=== PATIENT | male | born 1970 | race Caucasian/White ===

== ENCOUNTER 2018-01-02 01:40 | Inpatient (IN) | payer MEDICAID, OTHER, SELFPAY ==
[2018-01-02] MEDS ORDERED: MOM 30ML SUSPENSION UDC PO (03:30)
[2018-01-02] MEDS ORDERED: MAALOX 30 ML SUSP *UDC PO (03:30)
[2018-01-02] MEDS: THIAMINE 100 MG TAB PO ×2 (09:39→20:24)
[2018-01-02] MEDS: MULTIVITAMINS/MINERALS THERAP 1 TAB PO (09:39)
[2018-01-02] MEDS: FOLIC ACID 1 MG TAB PO (09:39)
[2018-01-02] MEDS: LORazepam 2 MG TAB PO (12:24)
[2018-01-02] MEDS: CitaloPRAM (CeleXA) 20 MG TAB PO (15:22)
[2018-01-02] MEDS: traZODone 50 MG TAB PO (20:24)
[2018-01-03] MEDS: THIAMINE 100 MG TAB PO ×2 (08:52→21:24)
[2018-01-03] MEDS: MULTIVITAMINS/MINERALS THERAP 1 TAB PO (08:53)
[2018-01-03] MEDS: CitaloPRAM (CeleXA) 20 MG TAB PO (08:53)
[2018-01-03] MEDS: LORazepam 2 MG TAB PO ×2 (08:53→18:25)
[2018-01-03] MEDS: FOLIC ACID 1 MG TAB PO (08:53)
[2018-01-03] MEDS: traZODone 50 MG TAB PO (21:24)
[2018-01-04] MEDS: MULTIVITAMINS/MINERALS THERAP 1 TAB PO (08:45)
[2018-01-04] MEDS: FOLIC ACID 1 MG TAB PO (08:45)
[2018-01-04] MEDS: CitaloPRAM (CeleXA) 20 MG TAB PO (08:46)
[2018-01-04] MEDS: THIAMINE 100 MG TAB PO ×2 (08:46→21:29)
[2018-01-04] MEDS: NICOTINE 21MG/24HR 1 EA TRANSDERMAL TD (15:18)
[2018-01-04] MEDS: traZODone 50 MG TAB PO (21:29)
[2018-01-04] MEDS: ACETAMINOPHEN TAB 650MG DOSE (2X325MG) PO (21:30)
[2018-01-05] MEDS: NICOTINE 21MG/24HR 1 EA TRANSDERMAL TD (08:46)
[2018-01-05] MEDS: FOLIC ACID 1 MG TAB PO (08:46)
[2018-01-05] MEDS: MULTIVITAMINS/MINERALS THERAP 1 TAB PO (08:46)
[2018-01-05] MEDS: CitaloPRAM (CeleXA) 20 MG TAB PO (08:46)
[2018-01-05] MEDS: IBUPROFEN 400 MG TAB PO (21:23)
[2018-01-05] MEDS: traZODone 100 MG TAB PO (21:23)
[2018-01-06] MEDS: MULTIVITAMINS/MINERALS THERAP 1 TAB PO (08:17)
[2018-01-06] MEDS: CitaloPRAM (CeleXA) 20 MG TAB PO (08:17)
[2018-01-06] MEDS: FOLIC ACID 1 MG TAB PO (08:17)
[2018-01-06] MEDS: NICOTINE 21MG/24HR 1 EA TRANSDERMAL TD (08:19)
[2018-01-06] MEDS: IBUPROFEN 400 MG TAB PO ×2 (10:31→21:15)
[2018-01-06] MEDS: hydrOXYzine 50 MG TAB PO ×2 (10:31→21:14)
[2018-01-06] MEDS: traZODone 100 MG TAB PO (21:15)
[2018-01-07] MEDS: FOLIC ACID 1 MG TAB PO (08:25)
[2018-01-07] MEDS: NICOTINE 21MG/24HR 1 EA TRANSDERMAL TD (08:25)
[2018-01-07] MEDS: MULTIVITAMINS/MINERALS THERAP 1 TAB PO (08:25)
[2018-01-07] MEDS: CitaloPRAM (CeleXA) 20 MG TAB PO (08:25)
[2018-01-07] MEDS: hydrOXYzine 50 MG TAB PO ×2 (08:26→16:25)
[2018-01-07] MEDS: IBUPROFEN 400 MG TAB PO (16:25)
[2018-01-07] MEDS: DOXEPIN 25 MG CAP PO (21:54)
[2018-01-08] MEDS: CitaloPRAM (CeleXA) 20 MG TAB PO (08:11)
[2018-01-08] MEDS: NICOTINE 21MG/24HR 1 EA TRANSDERMAL TD (08:11)
[2018-01-08] MEDS: hydrOXYzine 50 MG TAB PO (08:11)
[2018-01-08] MEDS: DOXEPIN 25 MG CAP PO (21:01)
[2018-01-09] MEDS: NICOTINE 21MG/24HR 1 EA TRANSDERMAL TD (08:43)
[2018-01-09] MEDS: hydrOXYzine 50 MG TAB PO ×2 (08:43→19:40)
[2018-01-09] MEDS: CitaloPRAM (CeleXA) 20 MG TAB PO (08:43)
[2018-01-09] MEDS: DOXEPIN 25 MG CAP PO (21:28)
[2018-01-10] MEDS: CitaloPRAM (CeleXA) 20 MG TAB PO (08:01)
[2018-01-10] MEDS: hydrOXYzine 50 MG TAB PO ×2 (08:01→16:42)
[2018-01-10] MEDS: IBUPROFEN 400 MG TAB PO ×2 (08:01→16:42)
[2018-01-10] MEDS: NICOTINE 21MG/24HR 1 EA TRANSDERMAL TD (08:02)
[2018-01-10] MEDS: DOXEPIN 25 MG CAP PO (21:17)
[2018-01-11] MEDS: NICOTINE 21MG/24HR 1 EA TRANSDERMAL TD (08:11)
[2018-01-11] MEDS: hydrOXYzine 50 MG TAB PO (08:12)
[2018-01-11] MEDS: CitaloPRAM (CeleXA) 20 MG TAB PO (08:12)
== END 2018-01-11 12:10 | DRG 775 ==
LOC: M ED 01:40 → M ED INP 03:25 → M PSY 04:54
DX: F10.24 Alcohol dependence with alcohol-induced mood disorder (principal); F17.210 Nicotine dependence, cigarettes, uncomplicated; F43.21 Adjustment disorder with depressed mood; M51.36 Other intervertebral disc degeneration, lumbar region; Z59.0 Homelessness; Z88.1 Allergy status to other antibiotic agents

== ENCOUNTER → 2021-11-05 | Outpatient (REF) ==
[~2021-11-05] MED LIST: CELE20TA PO; DOXE100CA PO; DOXE25CA PO
--- NOTE | 2021-11-05 10:40 | REP ---
INDICATION: PAIN COMPARISON: None. TECHNIQUE: AP, lateral, coned-down views of the lumbar spine. FINDINGS: Alignment and lordosis maintained. No acute fracture/compression injury or subluxation. Moderate/advanced degenerative changes primarily at L4-5 and L5-S1 including endplate sclerosis, disc space narrowing, osteophytosis and facet arthropathy. Mild/moderate degenerative changes noted throughout the remainder of the lumbar spine. IMPRESSION: 1. No acute fracture / compression injury or subluxation. 2. Moderate/advanced degenerative changes at L4-5 and L5-S1. <Electronically signed by Epifanio Golden > 11/05/21 [id number]
== END ==
LOC: M PLAIMG 09:54
PROVIDERS: ATTEND Internal Medicine
DX: M51.26 Other intervertebral disc displacement, lumbar region (principal); M51.27 Other intervertebral disc displacement, lumbosacral region

== ENCOUNTER → 2022-01-09 | Outpatient (CLI) | payer OTHER ==
[2022-01-09 13:05] LABS: BASO # 0.1 10^3/uL (0.0-0.2); BASO % 0.7 % (0.0-1.0); EOS # 0.2 10^3/uL (0.0-0.5); EOS % 2.1 % (0.0-3.0); HEMOGLOBIN 13.2 g/dl (13.5-17.5); LYMPH # 3.7 10^3/uL (1.5-5.0); LYMPH % 48.5 % (24.0-44.0); MEAN CORPUSCULAR HEMOGLOBIN 24.1 pg (27.0-33.0); MEAN CORPUSCULAR HGB CONC 31.4 g/dl (32.0-36.5); MEAN CORPUSCULAR VOLUME 76.8 fl (80.0-96.0); MONO # 0.3 10^3/uL (0.0-0.8); MONO % 3.3 % (2.0-8.0); NEUTROPHILS # 3.5 10^3/uL (1.5-8.5); NEUTROPHILS % 45.3 % (36.0-66.0); PLATELET COUNT, AUTOMATED 271 10^3/uL (150-450); RED BLOOD COUNT 5.47 10^6/uL (4.30-6.10); WHITE BLOOD COUNT 7.7 10^3/uL (4.0-10.0)
[2022-01-09 13:34] LABS: ERYTHROCYTE SEDIMENTATION RATE 19 mm/hr (0-20)
[2022-01-09 13:38] LABS: C REACTIVE PROTEIN QUANTITATIV 2.68 MG/DL (0.00-0.30); RHEUMATOID FACTOR QUANT < 10.0 IU/ML (<15.0); TOTAL PROTEIN 7.2 GM/DL (6.4-8.2)
[2022-01-13 11:11] LABS: ALBUMIN 4.02 GM/DL (3.29-5.55); ALBUMIN % 55.8 % (55.8-66.1); ALPHA-1-GLOBULIN % 5.1 % (2.9-4.9); ALPHA-1-GLOBULINS 0.37 GM/DL (0.17-0.41); ALPHA-2-GLOBULINS 0.89 GM/DL (0.42-0.99); ALPHA-2-GLOBULINS % 12.4 % (7.1-11.8); BETA-1-GLOBULINS % 6.9 % (4.7-7.2); BETA-2-GLOBULINS % 5.5 % (3.2-6.5); GAMMA GLOBULIN % 14.3 % (11.1-18.8); GAMMA GLOBULINS 1.03 GM/DL (0.65-1.58)
== END ==
LOC: M PLALAB 11:53
PROVIDERS: ATTEND Orthopaedic Surgery
DX: M47.896 Other spondylosis, lumbar region (principal)

== ENCOUNTER 2023-02-23 20:10 | Emergency (ER) | payer OTHER ==
[~2023-02-23] VITALS: Ht 165.1 cm; Wt 104.0 kg
[2023-02-24] MEDS ORDERED: ISOVUE-370 76% 100ML VIAL As Ordered ONE (03:06)
[2023-02-24 03:45] VITALS: BP 156/83
== END 2023-02-24 06:20 | disposition left against medical advice (07) ==
LOC: M ED 20:10
DX: S22.43XA Multiple fractures of ribs, bilateral, initial encounter for closed fracture (principal); W19.XXXA Unspecified fall, initial encounter; Y92.019 Unspecified place in single-family (private) house as the place of occurrence of the external cause; Y93.89 Activity, other specified; Y99.8 Other external cause status; F10.10 Alcohol abuse, uncomplicated; M51.37 Other intervertebral disc degeneration, lumbosacral region; Z85.038 Personal history of other malignant neoplasm of large intestine; Z88.1 Allergy status to other antibiotic agents; Z79.899 Other long term (current) drug therapy
CPT/HCPCS: 36415; 71046; 71260; 74177; 80047; 99284; Q9967

== ENCOUNTER → 2023-12-07 | Outpatient (CLI) | payer OTHER | LOC: M RAD 10:16 | PROVIDERS: ATTEND Student in an Organized Health Care Education/Training Program | DX: R91.8 Other nonspecific abnormal finding of lung field (principal); K76.89 Other specified diseases of liver ==

== ENCOUNTER → 2024-03-08 | Outpatient (CLI) | payer OTHER | LOC: M RAD 11:26 | PROVIDERS: ATTEND Otolaryngology | DX: K11.1 Hypertrophy of salivary gland (principal) ==

== ENCOUNTER → 2024-04-06 | Outpatient (CLI) | payer OTHER ==
[~2024-04-06] MED LIST changes: +ISOVUE-370 76% 100ML VIAL ONE
== END ==
LOC: M PLAIMG 08:25
PROVIDERS: ATTEND Otolaryngology
DX: K11.1 Hypertrophy of salivary gland (principal)
CPT/HCPCS: 70492; Q9967

== ENCOUNTER → 2024-05-02 | Outpatient (CLI) | payer OTHER ==
[~2024-05-02] MED LIST changes: -ISOVUE-370 76% 100ML VIAL ONE; +LIDOCAINE 1% MDV 20ML VIAL As Ordered ONE
[2024-05-02 14:40] VITALS: TEMP 97.4
[2024-05-02 15:30] VITALS: BP 169/95; O2SAT 94
== END ==
LOC: M IRPRO 14:33
PROVIDERS: ATTEND Otolaryngology
DX: K11.1 Hypertrophy of salivary gland (principal)

== ENCOUNTER → 2025-02-06 | Outpatient (CLI) | payer OTHER ==
[~2025-02-06] MED LIST changes: -LIDOCAINE 1% MDV 20ML VIAL As Ordered ONE
[2025-02-06 14:20] LABS: BASO % 0.3 % (0.0-1.0); EOS # 0.1 10^3/uL (0.0-0.5); HEMATOCRIT 48.2 % (42.0-52.0); HEMOGLOBIN 15.4 g/dl (13.5-17.5); LYMPH # 3.1 10^3/uL (1.5-5.0); LYMPH % 52.5 % (24.0-44.0); MEAN CORPUSCULAR HEMOGLOBIN 25.9 pg (27.0-33.0); MONO # 0.2 10^3/uL (0.0-0.8); MONO % 3.2 % (2.0-8.0); NEUTROPHILS # 2.5 10^3/uL (1.5-8.5); NEUTROPHILS % 42.7 % (36.0-66.0); PLATELET COUNT, AUTOMATED 238 10^3/uL (150-450); RED BLOOD COUNT 5.95 10^6/uL (4.30-6.10)
[2025-02-06 14:54] LABS: ALBUMIN 3.5 G/DL (3.2-5.2); ALKALINE PHOSPHATASE 81 U/L (40-129); ALT/SGPT 18 U/L (7.0-40); AST/SGOT 18 U/L (<34); BILIRUBIN,TOTAL 0.5 MG/DL (0.3-1.2); BLOOD UREA NITROGEN 5 MG/DL (9-23); CALCIUM LEVEL 8.8 MG/DL (8.5-10.1); CARBON DIOXIDE LEVEL 32 MMOL/L (20-31); CHLORIDE LEVEL 98 MMOL/L (98-107); CHOLESTEROL LEVEL 183 MG/DL (<200); CHOLESTEROL RISK RATIO 4.36 (<5); CREATININE FOR GFR 0.67 MG/DL (0.70-1.30); GLOMERULAR FILTRATION RATE > 60.0 (>56); GLUCOSE, FASTING 139 MG/DL (60-100); HDL CHOLESTEROL 41.9 MG/DL (>40); LDL CHOLESTEROL 79.9 MG/DL (<100); NON-HDL-C 141.1 MG/DL; POTASSIUM SERUM 4.4 MMOL/L (3.5-5.1); PSA SCREENING 0.25 NG/ML (< 4.00); SODIUM LEVEL 139 MMOL/L (136-145); TOTAL PROTEIN 7.1 G/DL (5.7-8.2); TRIGLYCERIDES LEVEL 306 MG/DL (<150)
== END ==
LOC: M PLALAB 12:08
PROVIDERS: ATTEND Student in an Organized Health Care Education/Training Program
DX: E78.2 Mixed hyperlipidemia (principal); Z12.5 Encounter for screening for malignant neoplasm of prostate
CPT/HCPCS: 36415; 80053; 80061; 85025; G0103